=== PATIENT | female | born 1930 | race Caucasian/White ===

== ENCOUNTER → 2016-08-03 | Day surgery (SDC) | payer MEDICARE, BC ==
[~2016-08-03] VITALS: Ht 162.6 cm; Wt 64.9 kg
[~2016-08-03] MED LIST: ALBU17IN2 INH; ASPI1TAB PO; ASTE0.15; BUPIVACAINE HCL 0.25% 30 ML VIAL As Ordered ONE; BUPIVACAINE HCL 0.25% 30 ML VIAL XX ONE; CLAR10CA3 PO; CONRAY-60 60% 50ML VIAL (Q9961) As Ordered ONE; DILT180C53 PO; ESTR625TA PV; FOSA70TA PO; FURO20TA2 PO; GLUC500C5 PO; GLYCOPYRROLATE INJ 0.2 MG/ML 2 ML VIAL As Ordered ONE; LIDOCAINE 2% INJ 100 MG/5 ML SDV (FOR ANES.) As Ordered ONE; LR 1,000 ML IV SCH; MIDAZOLAM INJ 2 MG/2 ML VIAL (J2250) As Ordered ONE; MOME50SP; NEOSTIGMINE 1MG/ML 5 ML SYRINGE (J2710) As Ordered ONE; ONDANSETRON 4MG/2ML VIAL (J2405) As Ordered ONE; ONDANSETRON 4MG/2ML VIAL (J2405) IV PRN; OSCA200T PO; PERCOCET 5MG/325MG TAB PO PRN; PRED1SUS OS; PROPOFOL 200 MG/20 ML VIAL As Ordered ONE; ROCURONIUM BROMIDE 50 MG/5 ML VIAL As Ordered ONE; SING10TA32 PO; SYMB16INH INH; SYNT50TA PO; SYST1SOL OU; VITA100066 PO; XOPEAER INH; ZADI0.026 OU; [UNRECOGNIZED DRUG - CODE] OS; [UNRECOGNIZED DRUG - OTHER] OS; fentaNYL 100 MCG/2 ML INJECTION (J3010) As Ordered ONE; fentaNYL 100 MCG/2 ML INJECTION (J3010) IV PRN
[2016-08-03 15:20] VITALS: BP 149/68
--- NOTE | 2016-08-06 07:29 | RO ---
DATE OF PROCEDURE: 08/03/2016 PREOPERATIVE DIAGNOSIS: Symptomatic gallstones. POSTOPERATIVE DIAGNOSIS: Symptomatic gallstones. PROCEDURE PERFORMED: Laparoscopic cholecystectomy. SURGEON: Dr. Francisco Muñoz RETAIL SUPPORT ASSOCIATE: ANESTHESIA: General. INDICATIONS FOR PROCEDURE: The patient is an 85-year-old woman with a history of several episodes of upper abdominal pain. Gallbladder ultrasound revealed multiple small stones. She is now for a laparoscopic cholecystectomy. DESCRIPTION OF PROCEDURE: The patient was placed under general endotracheal anesthesia. The patient's abdomen was prepped and draped in a sterile fashion. 0.25% Marcaine was infiltrated at each of the trocar sites prior to insertion. A short supraumbilical midline incision was made. The fascia was opened sharply and the peritoneum was opened bluntly. A Melinda cannula was inserted and the abdomen was insufflated with carbon dioxide gas. The laparoscope was placed. The patient's liver appeared normal. The gallbladder was not immediately visible. The visualized portions of the small and large bowel were normal. The patient was tilted to a reverse Trendelenburg position and rolled to the left. Two 5 mm trocars were placed in the right upper quadrant and a third 5 mm trocar was placed in the left upper quadrant. Graspers were inserted. The omentum was pulled down away from the liver and the distended gallbladder was identified. The gallbladder was grasped and elevated. Dissection began in the region of the gallbladder neck. The peritoneum was opened on both sides of the gallbladder neck. With further dissection, the cystic duct was clearly identified and dissected free circumferentially. The cystic duct was doubly clipped with hemoclips and divided. The dissection of the gallbladder from the gallbladder bed was begun with the cautery. A cholecystic artery branch was identified and this was doubly clipped with hemoclips and divided. The gallbladder was then completely dissected free from the gallbladder bed and placed within an Endopouch. The right upper quadrant was irrigated and inspected. Two small bleeding points on the gallbladder bed were cauterized with the resolution of any bleeding. Final inspection showed no evidence of bleeding or bile leak. The abdomen was deflated and the patient was returned to a flat position. The trocars were removed. The gallbladder was recovered through the Mccann site. There were innumerable small stones palpable within the gall. The peritoneum at the Mccann site was closed with a running suture of #2-0 Vicryl. The fascia was closed with interrupted simple sutures of #2-0 Vicryl. The skin incisions were all closed with buried #5-0 Vicryl and Steri-Strips. Light dressings were applied. The patient tolerated the procedure well without apparent complication. She was awakened in the operating room, extubated and moved to the recovery room in stable condition. JI
== END | disposition home or self-care (01) ==
LOC: M SDC 07:32
PROVIDERS: ATTEND Surgery
DX: K80.20 Calculus of gallbladder without cholecystitis without obstruction (principal); J45.909 Unspecified asthma, uncomplicated; M81.0 Age-related osteoporosis without current pathological fracture; E03.9 Hypothyroidism, unspecified; I10 Essential (primary) hypertension; R60.0 Localized edema; M12.9 Arthropathy, unspecified; Z78.0 Asymptomatic menopausal state; Z96.1 Presence of intraocular lens; Z88.2 Allergy status to sulfonamides; Z88.7 Allergy status to serum and vaccine; Z79.899 Other long term (current) drug therapy; Z79.82 Long term (current) use of aspirin
CPT/HCPCS: 47562; 88304; J2250; J2405; J2710; J3010

== ENCOUNTER → 2016-11-08 | Day surgery (SDC) | payer MEDICARE, BC ==
--- NOTE | 2016-11-01 17:42 | CR ---
DATE OF CONSULTATION: 11/01/[address] Luis E Salgado for cataract extraction 11/08/2016. Dear Dr. Salgado: Thank you for asking me to see Ms. Kelly Parisi in consultation prior to her cataract extraction. As you know, she is an 85-year-old female with a past medical history of asthma, allergies, hypertension who reports that she has been in her usual state of good health. The patient reports this surgery has been delayed because of needing a cholecystectomy as well as her needing to have his cataracts extracted. She is ready to proceed as vision is poor in the right eye. The patient has asthma. She is controlled with her Symbicort and Singulair, she has not needed the Xopenex recently. The patient has seasonal allergies. She has started up her loratadine and Nasonex. She will add saline and Astelin if her symptoms progress. The patient has hypertension. Denies any chest pain, palpitations, syncope or presyncope. She is compliant with her diltiazem and furosemide. The patient has longstanding history of asymmetric edema. She feels it is chronic, stable. She has compression stockings and is compliant wearing these. The patient does have easy bruisability. She only takes aspirin once a week. The patient has osteoarthritis (OA), degenerative joint disease (DJD), chronic, stable. No recent exacerbations. Review of systems otherwise negative. PAST MEDICAL HISTORY: 1. Asthma. 2. Environmental allergies. 3. Meniere's. 4. Osteoporosis. 5. Hypertension. 6. Hyperlipidemia. 7. Palpitations with findings of premature atrial contractions (PACs) on Holter 2004. 8. Adenomatous colonic polyps status post colonoscopy 08/01/2012. 9. Status post laparoscopic cholecystectomy 08/03/2016. 10. Hyperglycemia. 11. Asymmetric lower extremity edema with extensive imaging including right ankle x-ray, CT scan of the abdomen and pelvis, orthopedic consultation. 12. Abnormal chest CT with a normal PET scan 01/17/2015, unchanged chest CT 04/18/2016 consistent with scarring. 13. Lichen sclerosis per biopsy 04/01/2015 Dr. Mccann. 14. Hypothyroid. PATIENT'S MEDICATIONS: - alendronate 70 mg weekly - baby aspirin 81 mg weekly - Astelin nasal spray as needed - calcium citrate twice a day - diltiazem ER 180 daily - furosemide 40 mg every morning - glucosamine daily - levothyroxine 25 mcg daily - loratadine 10 mg daily - Nasonex one spray per nostril twice a day - Premarin vaginal cream at bedtime as needed - Singulair 10 mg daily - Symbicort 160 two puffs twice a day - Systane eye drops - vitamin D3 1000 international units daily - Xopenex as needed - Zaditor eye drops daily DRUG ALLERGIES: SULFA, FLUZONE, environmental. SOCIAL HISTORY: Never smoked. No alcohol. FAMILY HISTORY: Father had cataracts, transient ischemic attacks (TIAs), in his 80s of natural causes. Mother had hypothyroidism, hypertension, allergies, cataracts, of natural causes in her 80s. Multiple children have seasonal allergies, a son has prolactinoma. Grandparents of stroke and breast cancer. PHYSICAL EXAMINATION: No acute distress. VITAL SIGNS: Weight 148 with a body mass index (BMI) of 25, oxygen saturation is 98%, blood pressure 126/60 with a heart rate of 72. HEENT EXAM: Head is normocephalic. She wears eyeglasses. Left pupil is abnormal in shape. Tympanic membranes bilaterally scarred. Neck is supple, no jugular venous distention (JVD), thyromegaly, carotid bruits. RESPIRATORY: Clear to auscultation, resonant to percussion. She has kyphosis. She has no expiratory wheezes. CARDIOVASCULAR: Regular rate and rhythm. No murmur, rub, gallop. ABDOMEN: Normoactive bowel sounds, soft, nontender. No hepatosplenomegaly. EXTREMITIES: She has 1+ pretibial edema on the right, trace on the left. She does have some OA changes of the distal interphalangeal (DIP) joints. LABORATORY DATA: From 10/12/2016, normal CBC, metabolic profile significant for sugar of 128, calcium of 8.3, TSH of 3.89. EKG from 05/18/2016, normal sinus rhythm, rate of 61, axis of 36 degrees, incomplete right bundle branch block, normal WA, QRS, QTc interval. No significant change compared EKG 02/03/2014. Chest x-ray 05/18/2016, no active disease. IMPRESSION: Ms. Kelly Parisi is an 85-year-old female with cardiovascular risk factors positive for age and hypertension who has no signs or symptoms indicative of cardiovascular ischemia and is felt to be at low risk for cardiovascular complications from the proposed surgical intervention which can be further minimized by the followin. Hypertension. Hold furosemide morning of surgery. Take Cardizem as usual the evening prior to surgery. She is well controlled. 2. Hypothyroid. She will hold her levothyroxine morning of surgery. Take this following surgery. 3. Asthma. She will take her Symbicort as usual the morning of surgery, her Singulair the evening prior to surgery and bronchodilators if necessary for seasonal allergies. She will take her loratadine the morning of surgery as well as Nasonex saline spray and Astelin if needed. 4. Osteoarthritis (OA), degenerative joint disease (DJD). Hold morning medications. 5. Osteoporosis. Hold alendronate, calcium and vitamin D. 6. Asymmetric edema, chronic, stable. Continue compression stockings. Thank you very much for this consultation. Please call with any questions or concerns.
[~2016-11-08] VITALS: Ht 162.6 cm; Wt 66.2 kg
[~2016-11-08] MED LIST changes: +ACETYLCHOLINE OPHTH SOLN 1% 2ML As Ordered ONE; +BALANCED SALT IRRIGATION SOLUTION 500ML BAG (FOR OR EYE MACHINE) As Ordered ONE; -BUPIVACAINE HCL 0.25% 30 ML VIAL As Ordered ONE; -BUPIVACAINE HCL 0.25% 30 ML VIAL XX ONE; +CART180C PO; +CEFUROXIME 1MG/0.1ML INTRACAMERAL INJ As Ordered ONE; +CITRCHW PO; -CONRAY-60 60% 50ML VIAL (Q9961) As Ordered ONE; +CYCLOPENTOLATE 1% OPHTH SOLN 2 ML BTL XX ONE; +CYCLOPENTOLATE 2% OPHTH SOLN As Ordered ONE; +CYCLOPENTOLATE 2% OPHTH SOLN OD ONE; -GLYCOPYRROLATE INJ 0.2 MG/ML 2 ML VIAL As Ordered ONE; +HEALON DUET (HEALON 10MG/ML 0.55ML & HEALON ENDOCOAT 30MG/ML 0.85ML) As Ordered ONE; +LEVA45AE IN; +LIDOCAINE 0.75%/EPINEPHRINE 0.025% IN BSS 1ML SYR INTRACAMERAL (OR ONLY) As Ordered ONE; -LIDOCAINE 2% INJ 100 MG/5 ML SDV (FOR ANES.) As Ordered ONE; -NEOSTIGMINE 1MG/ML 5 ML SYRINGE (J2710) As Ordered ONE; +OFLOXACIN 0.3 % (OCUFLOX) OPTH SOL 5ML OD ONE; -ONDANSETRON 4MG/2ML VIAL (J2405) As Ordered ONE; -PERCOCET 5MG/325MG TAB PO PRN; +PHENYLEPHRINE 2.5% OPHTH SOL 2ML OD ONE; +POVIDONE-IODINE 5% OPHTH PREP SOL 30ML As Ordered ONE; +PROPARACAINE 0.5% OPHTH SOL 15ML OD ONE; -PROPOFOL 200 MG/20 ML VIAL As Ordered ONE; -ROCURONIUM BROMIDE 50 MG/5 ML VIAL As Ordered ONE; +SODI2OPD OS; +SYSTSOL14 OU; +TOBRADEX OPHTH OINT 3.5 GM As Ordered ONE; +TROPICAMIDE 1% OPHTH SOLN 2 ML OD ONE; -ZADI0.026 OU; +ZADI1DRO OU; -fentaNYL 100 MCG/2 ML INJECTION (J3010) IV PRN
[2016-11-08 09:50] VITALS: BP 135/65
--- NOTE | 2016-11-09 08:56 | RO ---
DATE OF PROCEDURE: 11/08/2016 PREOPERATIVE DIAGNOSIS: Visually significant nuclear sclerotic cataract right eye. POSTOPERATIVE DIAGNOSIS: Visually significant nuclear sclerotic cataract right eye. PROCEDURE: Cataract extraction with use of phacoemulsification and placement of intraocular lens PCBO, 22.5 Diopter, right eye. SURGEON: Luis E Salgado DO SCRAP WORKER: ANESTHESIA: Local with monitored anesthesia care (MAC). COMPLICATIONS: None. POSTOPERATIVE CONDITION: Stable. INDICATION FOR SURGERY: Blurred vision right eye affecting patient's activities of daily living. DESCRIPTION OF PROCEDURE: The patient was seen in the preoperative area and properly identified. The correct operative eye was identified and marked. Attention was turned to that eye. The patient received topical antibiotics in the preoperative area. The patient then received topical dilating drops consisting of tropicamide and phenylephrine. The patient was then transferred to the operating room. The correct side was reidentified. The patient received topical anesthetics and antibiotics on the surface of the eye. The eye was prepped and draped in a sterile fashion. The upper and lower eyelids were isolated with Tegaderm tape, and the lids were held open with an adjustable speculum. Using a sideport blade, a paracentesis incision was made. Intraocular preservative-free lidocaine was then injected into the anterior chamber. Viscoelastic was then injected into the anterior chamber through the paracentesis. Using a 2.65 mm sharp-tipped keratome, the anterior chamber was entered via a temporal clear corneal incision. A continuous curvilinear capsulorrhexis was created with the aid of a 26-gauge cystotome and Utrata forceps. Hydrodissection was performed with balanced salt solution (BSS) on a blunt cannula until the nucleus was freely mobile. The crystalline lens was phacoemulsified and aspirated. Additional cohesive viscoelastic was placed into the capsular bag to deepen it. A PCBO, 22.5 Diopter lens was placed into the capsular bag and confirmed by visualizing the continuous curvilinear capsulorrhexis. Additional irrigation and aspiration was used to remove cortical material and remaining viscoelastic. The clear corneal incision was hydrated with BSS on a blunt cannula. The lens was well positioned. The incisions were then tested for leaks and found to be negative. The eye was then palpated for appropriate pressure and adjusted accordingly with BSS. The eyelid speculum was then carefully removed. Tobradex ointment was placed in the eye. An eye patch and shield were then secured over the eye. The patient tolerated the procedure well and was discharged to the recovery unit in a stable condition. JI
== END | disposition home or self-care (01) ==
LOC: M SDC 07:16
PROVIDERS: ATTEND Ophthalmology
DX: H25.11 Age-related nuclear cataract, right eye (principal); I10 Essential (primary) hypertension; R60.0 Localized edema; E03.9 Hypothyroidism, unspecified; M12.9 Arthropathy, unspecified; M81.0 Age-related osteoporosis without current pathological fracture; J45.909 Unspecified asthma, uncomplicated; J30.9 Allergic rhinitis, unspecified; Z88.2 Allergy status to sulfonamides; Z88.7 Allergy status to serum and vaccine; Z79.899 Other long term (current) drug therapy; Z79.82 Long term (current) use of aspirin; Z78.0 Asymptomatic menopausal state
CPT/HCPCS: 66984; J2250; J3010; V2632

== ENCOUNTER → 2022-02-06 | Outpatient (CLI) | payer MEDICARE, BC ==
[~2022-02-06] MED LIST changes: -ACETYLCHOLINE OPHTH SOLN 1% 2ML As Ordered ONE; -ASPI1TAB PO; +ASPI81TA26 PO; -BALANCED SALT IRRIGATION SOLUTION 500ML BAG (FOR OR EYE MACHINE) As Ordered ONE; -CART180C PO; +CART180C3 PO; -CEFUROXIME 1MG/0.1ML INTRACAMERAL INJ As Ordered ONE; -CYCLOPENTOLATE 1% OPHTH SOLN 2 ML BTL XX ONE; -CYCLOPENTOLATE 2% OPHTH SOLN As Ordered ONE; -CYCLOPENTOLATE 2% OPHTH SOLN OD ONE; -DILT180C53 PO; +DILT180C78 PO; -HEALON DUET (HEALON 10MG/ML 0.55ML & HEALON ENDOCOAT 30MG/ML 0.85ML) As Ordered ONE; +LEVAINH INH; -LIDOCAINE 0.75%/EPINEPHRINE 0.025% IN BSS 1ML SYR INTRACAMERAL (OR ONLY) As Ordered ONE; -LR 1,000 ML IV SCH; -MIDAZOLAM INJ 2 MG/2 ML VIAL (J2250) As Ordered ONE; -MOME50SP; +NASO50SP3; -OFLOXACIN 0.3 % (OCUFLOX) OPTH SOL 5ML OD ONE; -ONDANSETRON 4MG/2ML VIAL (J2405) IV PRN; -PHENYLEPHRINE 2.5% OPHTH SOL 2ML OD ONE; -POVIDONE-IODINE 5% OPHTH PREP SOL 30ML As Ordered ONE; -PRED1SUS OS; +PRED1SUS2 OS; -PROPARACAINE 0.5% OPHTH SOL 15ML OD ONE; -TOBRADEX OPHTH OINT 3.5 GM As Ordered ONE; -TROPICAMIDE 1% OPHTH SOLN 2 ML OD ONE; -XOPEAER INH; +[UNRECOGNIZED DRUG - CODE] OS; -[UNRECOGNIZED DRUG - CODE] OS; -fentaNYL 100 MCG/2 ML INJECTION (J3010) As Ordered ONE
== END ==
LOC: M WHC 09:59
PROVIDERS: ATTEND Internal Medicine
DX: Z13.820 Encounter for screening for osteoporosis (principal); M85.89 Other specified disorders of bone density and structure, multiple sites